=== PATIENT | male | born 1990 | race Caucasian/White ===

== ENCOUNTER 2016-11-22 03:00 | Emergency (ER) | payer OTHER | END 2016-11-22 07:48 | disposition left against medical advice (07) | LOC: ER1 03:00 | DX: Z53.21 Procedure and treatment not carried out due to patient leaving prior to being seen by health care provider (principal) | CPT/HCPCS: 93005 ==

== ENCOUNTER → 2017-01-05 | Outpatient (CLI) | payer OTHER | LOC: KOH-I 01-01 13:00 | DX: R19.02 Left upper quadrant abdominal swelling, mass and lump (principal); K59.00 Constipation, unspecified | CPT/HCPCS: 74150 ==